=== PATIENT | female | born 1955 | race Caucasian/White ===

== ENCOUNTER → 2016-09-04 | Outpatient (CLI) | payer BC, OTHER ==
[~2016-09-04] MED LIST: AMLO-110 PO; COEN10CA5 PO; LEVO75TA5 PO; MAGN1CAP3 PO; SYN75 PO
[2016-09-04 11:22] LABS: ALT/SGPT 19 U/L (12-78); AST/SGOT 15 U/L (15-37); BLOOD UREA NITROGEN 14 mg/dl (7-18); BUN/CREATININE RATIO 18.6 (10-20); CARBON DIOXIDE 30 mmol/L (21-32); CHLORIDE 103 mmol/L (98-107); CREATININE 0.78 mg/dl (0.60-1.20); GLUCOSE 103 mg/dl (70-99); POTASSIUM 3.9 mmol/L (3.5-5.1); SODIUM 141 mmol/L (136-145)
[2016-09-04 11:33] LABS: ALB/GLOB RATIO 1.1 (0.9-2); ALKALINE PHOSPHATASE 73 U/L (45-117); CHOLESTEROL 315 mg/dl (0-200); CHOLESTEROL/HDL RATIO 4.6; HDL CHOLESTEROL 69 mg/dl; LDL CHOLESTEROL CALCULATED 217 mg/dl; TRIGLYCERIDES 143 mg/dl (0-150); VERY LOW DENSITY LIPOPROT CALC 29 mg/dl
[2016-09-04 11:37] LABS: ESTIMATED AVERAGE GLUCOSE 117 mg/dl; HA1C FLAG Normal (Normal)
== END | disposition home or self-care (01) ==
LOC: C.LABBC 08:37
PROVIDERS: ATTEND Family Medicine
DX: R73.03 Prediabetes (principal); E78.5 Hyperlipidemia, unspecified; I10 Essential (primary) hypertension; E03.9 Hypothyroidism, unspecified

== ENCOUNTER → 2016-09-16 | Outpatient (CLI) | payer BC, OTHER ==
[2016-09-16 11:41] LABS: URINE APPEARANCE CLEAR (CLEAR); URINE BILIRUBIN NEG (NEG); URINE COLOR YELLOW; URINE EPITHELIAL CELL AUTO 0-5 /lpf (0-5); URINE NITRITE NEG (NEG); URINE PH 7.5 (4.5-7.5); UROBILINOGEN NEG (NEG)
[2016-09-16 11:44] LABS: MANUAL MICROSCOPIC REQUIRED? NO; REVIEW REQ? NO
== END | disposition home or self-care (01) ==
LOC: C.LABSPEC 10:29
PROVIDERS: ATTEND Internal Medicine
DX: R30.0 Dysuria (principal)

== ENCOUNTER → 2016-09-27 | Outpatient (CLI) | payer BC ==
[2016-09-27 16:57] LABS: URINE APPEARANCE CLEAR (CLEAR); URINE BILIRUBIN NEG (NEG); URINE COLOR DK YELLOW; URINE EPITHELIAL CELL AUTO 0-5 /lpf (0-5); URINE NITRITE POS (NEG); URINE PH 7.5 (4.5-7.5); URINE SPECIFIC GRAVITY 1.015 (1.000-1.030); UROBILINOGEN NEG (NEG)
[2016-09-27 17:00] LABS: MANUAL MICROSCOPIC REQUIRED? NO; REVIEW REQ? NO
== END | disposition home or self-care (01) ==
LOC: C.LABBC 12:22
PROVIDERS: ATTEND Family Medicine
DX: R30.0 Dysuria (principal)

== ENCOUNTER 2016-11-03 10:57 | Emergency (ER) | payer BC ==
[~2016-11-03] VITALS: Ht 165.1 cm; Wt 67.2 kg
[~2016-11-03 10:57] MED LIST changes: -AMLO-110 PO; -LEVO75TA5 PO
[2016-11-03 11:06] VITALS: TEMP 36.7; Ht 165.1 cm; Wt 67.2 kg
[2016-11-03 11:30] VITALS: O2SAT 98
[2016-11-03 11:51] LABS: HEMATOCRIT 45.1 % (37-47); MEAN CELL VOLUME 91.3 fL (80-100); MEAN CORPUSCULAR HEMOGLOBIN 31.6 pg (25-34); MEAN CORPUSCULAR HGB CONC 34.6 g/dl (32-36); PLATELET COUNT 240 K/uL (130-400); RED BLOOD COUNT 4.94 M/uL (4.2-5.4); WHITE BLOOD COUNT 4.98 K/uL (4.8-10.8)
--- NOTE | 2016-11-03 11:58 | DIAGNOSTIC IMAGING REPORT ---
SINGLE VIEW CHEST CLINICAL HISTORY: Hypertension. FINDINGS: An AP, portable, upright chest radiograph is compared to study dated 11/29/2010. The examination is degraded by portable technique and patient rotation. The cardiomediastinal heart is mildly enlarged. The pulmonary vasculature is noncongested. Chronic interstitial thickening is unchanged. The lungs and pleural spaces are clear. No pneumothorax is seen. The skeletal structures are osteopenic. The bony thorax is grossly intact. IMPRESSION: Mild cardiac enlargement with no active disease in the chest. Electronically signed by: Mejia Stinson M.D. 11/03/2016 11:57 AM Dictated Date/Time: 11/03/2016 11:56 AM
[2016-11-03] MEDS ORDERED: SODIUM CHLORIDE 0.9% 1000ML 1,000 ML IV STA (12:06)
[2016-11-03 12:08] LABS: PROTHROMBIN TIME (PATIENT) 10.2 SECONDS (9.0-12.0)
--- NOTE | 2016-11-03 12:08 | EMERGENCY ROOM VISIT NOTE ---
History Report prepared by Sandra: Dino Finn Under the Supervision of: Rosa ShannonO. First contact with patient: 11:51 Chief Complaint: HYPERTENSION Stated Complaint: HIGH BLOOD PRESSURE MAKING HER ANXIOUS History of Present Illness The patient is a 61 year old female who presents to the Emergency Room with complaints of waxing & waning hypertension this morning. The patient is not treated for hypertension but she is on the borderline so she checks it regularly. The first time she checked her blood pressure this morning it was normal. The following readings showed 165 / 90, 134 / 100, and 184 / 110. She admits to feeling anxious. She experienced generalized body tingling last night. Today she is asymptomatic. She denies fevers, chills, headache, blurry vision, cough or cold symptoms, chest pain, shortness of breath, nausea, vomiting, changes in her bowel or urinary habits, or leg swelling. She has leg shoulder / arm pain chronically secondary to rotator cuff disease. She denies recent changes in her diet. The patient is not sure if she has a family history of hypertension. She does have a strong family history of heart disease at a young age. Source of History: patient Onset: this morning Position: other (cardiovascular) Quality: other (hypertension) Timing: waxes/wanes Associated Symptoms: + numbness (last night), No SOB, No chest pain, No chills, No cough, No diarrhea, No fevers, No headache, No nausea, No urinary symptoms, No vomiting Review of Systems See HPI for pertinent positives & negatives. A total of 10 systems reviewed and were otherwise negative. Past Medical & Surgical Medical Problems: (1) Benign hypertension (2) carcinoma of skin removal (3) Diverticulitis Family History Heart disease Social History Smoking Status: Never Smoker Alcohol Use: occasionally Marital Status: Housing Status: lives with significant other Occupation Status: retired Current/Historical Medications Scheduled Amlodipine (Norvasc), 5 MG PO DAILY Levothyroxine Sodium (Levothyroxine Sodium), 1 TAB PO DAILY Allergies Coded Allergies: Sulfa Drugs (Verified Allergy, Mild, FACIAL REDNESS AND HIVES, 11/03/16) Physical Exam Vital Signs Date Time Temp Pulse Resp B/P Pulse Ox O2 Delivery O2 Flow Rate FiO2 11/03/16 16:53 80 18 180/96 95 11/03/16 15:56 78 11/03/16 15:15 85 18 166/111 95 Room Air 11/03/16 14:19 60 18 173/93 97 Room Air 11/03/16 13:07 76 18 179/88 95 Room Air 11/03/16 13:02 59 18 179/88 96 Room Air 11/03/16 12:03 70 11/03/16 11:32 71 18 210/102 98 Room Air 184/100 11/03/16 11:30 98 Room Air 11/03/16 11:06 36.7 107 18 195/126 96 Room Air Physical Exam GENERAL: alert, well appearing, well nourished, no distress, non-toxic EYE EXAM: normal conjunctiva, PERRL and EOM's grossly intact OROPHARYNX: no exudate, no erythema, lips, buccal mucosa, and tongue normal and mucous membranes are dry NECK: supple, no nuchal rigidity, no adenopathy, non-tender LUNGS: Clear to auscultation. Normal chest wall mechanics HEART: no murmurs, S1 normal and S2 normal ABDOMEN: abdomen soft, non-tender, normo-active bowel sounds, no masses, no rebound or guarding. BACK: Back is symmetrical on inspection and there is no deformity, no midline tenderness, no CVA tenderness. SKIN: no rashes and no bruising UPPER EXTREMITIES: upper extremities are grossly normal. LOWER EXTREMITIES: No pitting edema. NEURO EXAM: Normal sensorium, cranial nerves II-XII grossly intact, normal speech, no gross weakness of arms, no gross weakness of legs. Gross sensation intact. Medical Decision & Procedures ER Provider Diagnostic Interpretation: Xray results per the radiologist and my interpretation. SINGLE VIEW CHEST CLINICAL HISTORY: Hypertension. FINDINGS: An AP, portable, upright chest radiograph is compared to study dated 11/29/2010. The examination is degraded by portable technique and patient rotation. The cardiomediastinal heart is mildly enlarged. The pulmonary vasculature is noncongested. Chronic interstitial thickening is unchanged. The lungs and pleural spaces are clear. No pneumothorax is seen. The skeletal structures are osteopenic. The bony thorax is grossly intact. IMPRESSION: Mild cardiac enlargement with no active disease in the chest. Electronically signed by: Mejia Stinson M.D. 11/03/2016 11:57 AM Dictated Date/Time: 11/03/2016 11:56 AM Laboratory Results 11/03/16 11:40 5/5/17 11:40 Test 11/03/16 11:40 11/03/16 13:09 Red Blood Count 4.94 M/uL (4.2-5.4) Mean Corpuscular Volume 91.3 fL (80-100) Mean Corpuscular Hemoglobin 31.6 pg (25-34) Mean Corpuscular Hemoglobin Concent 34.6 g/dl (32-36) RDW Standard Deviation 40.5 fL (36.4-46.3) RDW Coefficient of Variation 12.1 % (11.5-14.5) Mean Platelet Volume 10.0 fL (7.4-10.4) Prothrombin Time 10.2 SECONDS (9.0-12.0) Prothromb Time International Ratio 1.0 (0.9-1.1) Activated Partial Thromboplast Time 25.3 SECONDS (21.0-31.0) Partial Thromboplastin Ratio 1.0 Anion Gap 8.0 mmol/L (3-11) Est Creatinine Clear Calc Drug Dose 60.2 ml/min Estimated GFR () 83.3 Estimated GFR (Non- 71.9 BUN/Creatinine Ratio 15.3 (10-20) Calcium Level 9.6 mg/dl (8.5-10.1) Total Bilirubin 0.9 mg/dl (0.2-1) Aspartate Amino Transf (AST/SGOT) 19 U/L (15-37) Alanine Aminotransferase (ALT/SGPT) 16 U/L (12-78) Alkaline Phosphatase 75 U/L (45-117) Total Creatine Kinase 41 U/L (26-192) Creatine Kinase MB < 0.5 ng/ml (0.5-3.6) Creatine Kinase MB Ratio (0-3.0) Troponin I < 0.015 ng/ml (0-0.045) Total Protein 8.1 gm/dl (6.4-8.2) Albumin 4.3 gm/dl (3.4-5.0) Globulin 3.8 gm/dl (2.5-4.0) Albumin/Globulin Ratio 1.1 (0.9-2) Urine Color YELLOW Urine Appearance CLEAR (CLEAR) Urine pH 8.0 (4.5-7.5) Urine Specific [place] 1.005 (1.000-1.030) Urine Protein NEG (NEG) Urine Glucose (UA) NEG (NEG) Urine Ketones 1+ (NEG) Urine Occult Blood NEG (NEG) Urine Nitrite NEG (NEG) Urine Bilirubin NEG (NEG) Urine Urobilinogen NEG (NEG) Urine Leukocyte Esterase NEG (NEG) Laboratory results per my review. Medications Administered Medications (Trade) Dose Ordered Sig/Micah Route Start Time Stop Time Status Last Admin Dose Admin Sodium Chloride (Nss 1000ml) 1,000 ml @ 999 mls/hr Q1H1M STAT IV 11/03/16 12:06 11/03/16 13:06 DC 11/03/16 13:02 999 MLS/HR Amlodipine Besylate (Norvasc Tab) 5 mg NOW ONCE PO 11/03/16 14:15 11/03/16 14:16 DC 11/03/16 14:23 5 MG ECG Indication: other (hypertension) Rate (beats per minute): 72 Rhythm: normal sinus Findings: no acute ischemic change, other (normal axis, normal intervals) Comparison ECG Date: no prior available ED Course 1156: The patient was evaluated in room C2B. A complete history and physical exam was performed. 1206 NSS 1000 ml @ 999 mls/hr. 1358: The patient looks fine. Pressure is still elevated. 1415: Norvasc 5 mg PO. 1600: Blood pressure 159/91. She is asymptomatic and feels okay. She would like to go home. Medical Decision Differential diagnosis includes essential hypertension, hypertensive urgency vs emergency, ACS, anxiety, dietary indiscretion. Patient with a symptomatically hypertension. No evidence of end organ damage. Given lack of symptoms and reassuring labs, doubt ACS, dissection, CVA, intracerebral hemorrhage. No evidence of acute infectious process. Patient mildly anxious, and likely this contributed to escalating pressures after she had one mildly elevated reading at home and continue to check her pressure. This patient bedside close follow-up with family doctor in possible cardiology evaluation as an outpatient. Discussed having her blood pressure machine calibrated and appropriate checking of her blood pressure at home. Discussed initiation of medication. Discussed symptoms to watch and return for, she verbalized understanding was agreeable with plan. Patient with a nonfocal and reassuring neuro exam here, did not feel warranted neuro imaging at this time. Patient with a history of chronic left shoulder pain, no change in her baseline level of pain, patient is active and has pain on regular basis. Impression Primary Impression: Essential hypertension Additional Impression: Anxiety Scribe Attestation The scribe's documentation has been prepared under my direction and personally reviewed by me in its entirety. I confirm that the note above accurately reflects all work, treatment, procedures, and medical decision making performed by me. Departure Information Dispostion Home / Self-Care Prescriptions Amlodipine (Norvasc) 5 Mg Tab 5 MG PO DAILY, #30 TAB Prov: Yennifer Velazquez, 11/03/16 Referrals Amador Bro D.O.Int.Med. (PCP) Forms HOME CARE DOCUMENTATION FORM, IMPORTANT VISIT INFORMATION, WORK / SCHOOL INSTRUCTIONS Patient Instructions My [facility] Additional Instructions Please follow-up with your family doctor in the next 2-3 days. Please take the blood pressure medication daily as prescribed. If you develop any symptoms including headaches, vision changes, chest pain or pressure, trouble breathing, nausea, dizziness, numbness or tingling, abdominal pain, back pain, or any other new concerns, please return to the ER immediately. Please discuss with your her family doctor blood pressure medications, as well as possible cardiology evaluation. Problem Qualifiers
[2016-11-03 12:14] LABS: ALT/SGPT 16 U/L (12-78); AST/SGOT 19 U/L (15-37); BLOOD UREA NITROGEN 13 mg/dl (7-18); BUN/CREATININE RATIO 15.3 (10-20); CALCIUM 9.6 mg/dl (8.5-10.1); CARBON DIOXIDE 29 mmol/L (21-32); CHLORIDE 104 mmol/L (98-107); CREATININE 0.86 mg/dl (0.60-1.20); GLUCOSE 102 mg/dl (70-99); POTASSIUM 3.9 mmol/L (3.5-5.1); SODIUM 141 mmol/L (136-145)
[2016-11-03] MEDS ORDERED: LEVO75TA5 PO (12:18)
[2016-11-03 12:19] LABS: ALB/GLOB RATIO 1.1 (0.9-2); ALKALINE PHOSPHATASE 75 U/L (45-117)
[2016-11-03 13:40] LABS: URINE APPEARANCE CLEAR (CLEAR); URINE BILIRUBIN NEG (NEG); URINE COLOR YELLOW; URINE NITRITE NEG (NEG); URINE SPECIFIC GRAVITY 1.005 (1.000-1.030); UROBILINOGEN NEG (NEG); ZZUR CULT IF INDIC CLEAN CATCH NO
[2016-11-03 13:48] LABS: MANUAL MICROSCOPIC REQUIRED? NO; REVIEW REQ? NO
[2016-11-03] MEDS ORDERED: AMLODIPINE BESYLATE 5 MG TAB PO ONE (14:15)
[2016-11-03] MEDS ORDERED: AMLO-110 PO (16:11)
[2016-11-03 16:53] VITALS: BP 180/96; PULSE 80; O2SAT 95
== END 2016-11-03 16:54 | disposition home or self-care (01) ==
LOC: C.EDB 10:58 → C.EDC 16:54
DX: I10 Essential (primary) hypertension (principal); F41.9 Anxiety disorder, unspecified; K57.92 Diverticulitis of intestine, part unspecified, without perforation or abscess without bleeding; Z82.49 Family history of ischemic heart disease and other diseases of the circulatory system; Z79.899 Other long term (current) drug therapy

== ENCOUNTER → 2016-11-06 | Outpatient (CLI) | payer BC ==
[~2016-11-06] MED LIST changes: +AMLO-110 PO; -COEN10CA5 PO; +LEVO75TA5 PO; -MAGN1CAP3 PO; -SYN75 PO
== END | disposition home or self-care (01) ==
LOC: C.LABBC 11:18
PROVIDERS: ATTEND Family Medicine
DX: M25.512 Pain in left shoulder (principal); R00.0 Tachycardia, unspecified

== ENCOUNTER 2019-11-08 18:19 | Inpatient (IN) ==
--- NOTE | 2019-11-08 18:53 | Emergency Department Note ---
History of Present Illness General Chief complaint: Tachycardia Stated complaint: HIGH HEART RATE, HIGH BLOOD PRESSURE Time Seen by Provider: 11/08/19 18:30 Source: patient Mode of arrival: ambulatory Limitations: no limitations History of Present Illness Maximum Pain Intensity: 0 This patient comes in with a concern for elevated blood pressure and heart rate. She said her blood pressure was up for her yesterday at 161 systolic and then it was fine she felt well. Today she noticed on her smart watch that her heart rate was 178 and had high blood pressure. Heart rate has since come down. She is been asymptomatic with this however. She is had no chest pain lightheadedness or dizziness or syncope. No shortness of breath or pleurisy. No nausea or vomiting or numbness or weakness. She feels that she been keeping up with her fluid and has not been dehydrated. No leg pain or swelling. No recent travel. No exposure to COVID that she knows of or COVID-like symptoms. No dysuria. No blood or melena in the stool. No new medications. She had her thyroid checked recently and was and it looks good. She has been compliant with her medications. She states she had a history of a similar episode about 4 years ago and they increased her blood pressure medications and her blood pressure went too low and they took her back off. She does have a history of breast cancer but is not on any treatment at present and is not on tamoxifen or hormones. Home Medications Home Medications Medication Instructions Recorded Confirmed Type calcium carb-vit D3-minerals 600 1 tab PO DAILY tab 09/25/18 11/08/19 History mg calcium-400 unit tablet omega-3 360 mm-[id number]-fish oil 1 cap PO DAILY 09/25/18 11/08/19 History 1,200 mg capsule,delayed release levothyroxine [Synthroid] 75 mcg PO DAILY 11/08/19 11/08/19 History Allergies Allergy/AdvReac Type Severity Reaction Status Date / Time Sulfa (Sulfonamide Allergy Mild FACIAL Verified 11/08/19 19:35 Antibiotics) REDNESS AND HIVES gluten AdvReac Intermediate joint pain Verified 11/08/19 19:35 Past Med/Surg History Medical History Hypothyroid (Acute) Skin cancer (Acute) Surgical History S/P dilatation and curettage (Acute) Status post Mohs surgery (Acute) surgery 2009 / nose Status post right breast lumpectomy (Acute) surgery 08-21-2018 Family History Mother , age 74 Leukemia, acute Father , age 60 Coronary heart disease Sister No problems noted. Sister No problems noted. Sister No problems noted. Sister No problems noted. Sister No problems noted. Sister No problems noted. Brother Testicular cancer Brother Leukemia Brother No problems noted. Brother No problems noted. 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 Other Information That Helps Us Care for You: No Feels Safe at Home: Yes Safety Concerns: Feels Safe At This Time Smoking Status: Never smoker Hx Alcohol Use: Yes Alcohol type: wine Hx Substance Use: No Review of Systems A total of 10 systems reviewed and were otherwise negative Physical Exam Vital Signs Vital Signs - 24 hr 11/08/19 18:20 11/08/19 18:45 11/08/19 19:57 Temperature 36.5 C Temperature Source Oral Pulse Rate 128 H Pulse Rate [Right] 76 Pulse Rhythm [Right] Regular Pulse Strength [Right] Normal Respiratory Rate 20 16 Respiratory Effort / Characteristics Non-Labored Non-Labored Spontaneous Respiratory Depth Normal Normal Respiratory Pattern Regular Blood Pressure 198/124 H Blood Pressure [Left Arm] Blood Pressure [Right Arm] 198/108 H Blood Pressure Mean 148 Blood Pressure Mean [Left Arm] Blood Pressure Mean [Right Arm] 138 Blood Pressure Position [Left Arm] Blood Pressure Position [Right Arm] Sitting Pulse Oximetry 96 96 96 Oxygen Delivery Method Room Air Room Air Room Air Sepsis Recent Fever Within 48 Hours No Sepsis Action Taken by Nursing No Action Required 11/08/19 20:00 11/08/19 22:00 11/08/19 22:27 Temperature Temperature Source Pulse Rate Pulse Rate [Right] 87 78 Pulse Rhythm [Right] Regular Regular Pulse Strength [Right] Normal Normal Respiratory Rate 16 18 Respiratory Effort / Characteristics Non-Labored Spontaneous Non-Labored Spontaneous Respiratory Depth Normal Normal Respiratory Pattern Regular Regular Blood Pressure Blood Pressure [Left Arm] 193/105 H 228/120 H Blood Pressure [Right Arm] 203/114 H Blood Pressure Mean Blood Pressure Mean [Left Arm] 134 156 Blood Pressure Mean [Right Arm] 143 Blood Pressure Position [Left Arm] Sitting Lying Blood Pressure Position [Right Arm] Lying Pulse Oximetry 99 98 Oxygen Delivery Method Room Air Room Air Sepsis Recent Fever Within 48 Hours Sepsis Action Taken by Nursing 11/08/19 22:30 11/08/19 22:31 Temperature Temperature Source Pulse Rate 77 73 Pulse Rate [Right] 74 Pulse Rhythm [Right] Regular Pulse Strength [Right] Normal Respiratory Rate 17 19 Respiratory Effort / Characteristics Non-Labored Spontaneous Respiratory Depth Normal Respiratory Pattern Blood Pressure 220/96 H Blood Pressure [Left Arm] Blood Pressure [Right Arm] 220/96 H Blood Pressure Mean 142 Blood Pressure Mean [Left Arm] Blood Pressure Mean [Right Arm] 137 Blood Pressure Position [Left Arm] Blood Pressure Position [Right Arm] Lying Pulse Oximetry 96 98 Oxygen Delivery Method Room Air Room Air Sepsis Recent Fever Within 48 Hours Sepsis Action Taken by Nursing General: Well developed well nourished older female who appears in no acute distress, breathing comfortably on room air. Normal speech HEENT: Normal cephalic atraumatic. Pupils are equal round and reactive to light. Extraocular movements are intact. Oropharynx is pink with moist mucous membranes. No swelling of the mouth lips or tongue. Neck: Supple with a midline trachea. No meningeal signs or stiffness, no JVD or bruits. No Stridor. Chest: Clear to auscultation bilaterally. No wheezes or rhonchi. No increased work of breathing. Heart: Regular rate and rhythm without murmurs or gallops. Abdomen: Soft nontender, nondistended without rebound guarding or rigidity. Extremities: No cyanosis clubbing or edema. No calf tenderness or assymetry Spine/Back. Non tender to palpation. No CVA tenderness Skin: Good turgor without rashes. Neurologic exam: Cranial nerves two through 12 are intact. Motor and sensation are intact and symmetrical throughout. Procedures Free Text Procedures ED observation note-the patient was observed in the ED for chest pain The patient had does have a family history of cardiac disease and leukemia Because the patient was tachycardic and hypertensive she was placed on a registered nurse cardiac telemetry and had an EKG and troponin. She was placed in ED observation on 1848 and observed on a registered nurse cardiac telemetry while she was in the ED and had a second EKG and troponin. She remained in observation over 3 hours after her second troponin at 2200 because she remained tachycardic, she did warrant further evaluation in the hospital. Course Administered Medications Discontinued Medications Labetalol HCl (Normodyne) 10 mg IV NOW STA Stop: 11/08/19 22:10 Last Admin: 11/08/19 22:28 Dose: 10 mg Documented by: [id number] Cosigned by: [id number] Lisinopril (Zestril) 2.5 mg PO ONE ONE Stop: 11/08/19 22:44 Last Admin: 11/08/19 23:08 Dose: 2.5 mg Documented by: [id number] Tramadol HCl (Ultram) 25 mg PO NOW STA Stop: 11/08/19 22:12 Last Admin: 11/08/19 22:27 Dose: 25 mg Documented by: [id number] Medical Decision Making Differential Diagnosis Includes but is not limited to: Arrhythmia, hypertension, PE, electrolyte or metabolic abnormality, acute coronary syndrome, anemia, infection Medical Records Attestation: I reviewed the patient's medical records. Home Medications Current Medication List: was personally reviewed by me Laboratory Data Result diagrams: 11/08/19 19:02 11/08/19 19:02 Lab Results 11/08/19 11/08/19 11/08/19 Range/Units 19:02 19:02 19:02 WBC 6.41 (4.8-10.8) K/uL RBC 4.86 (4.2-5.4) M/uL Hgb 15.8 (12.0-16.0) g/dL Hct 44.3 (37-47) % MCV 91.2 (80-100) fL MCH 32.5 (25-34) pg MCHC 35.7 (32-36) g/dL RDW Std Deviation 41.7 (36.4-46.3) fL RDW Coeff of Jimi 12.5 (11.5-14.5) % Plt Count 259 (130-400) K/uL MPV 9.9 (7.4-10.4) fL Immature Gran % (Auto) 0.2 % Neut % (Auto) 62.7 % Lymph % (Auto) 28.5 % [place] % (Auto) 6.2 % Eos % (Auto) 1.6 % Baso % (Auto) 0.8 % Immature Gran # (Auto) 0.01 (0.00-0.02) K/uL Neut # (Auto) 4.02 (1.4-6.5) K/uL Lymph # (Auto) 1.83 (1.2-3.4) K/uL [place] # (Auto) 0.40 (0.11-0.59) K/uL Eos # (Auto) 0.10 (0-0.5) K/uL Baso # (Auto) 0.05 (0-0.2) K/uL PT 10.7 (9.0-12.0) Seconds INR 1.0 (0.9-1.1) APTT 24.8 (21.0-31.0) Seconds PTT Ratio 0.9 D-Dimer 290 (0-500) ug/L FEU Sodium 137 (136-145) mmol/L Potassium 4.0 (3.5-5.1) mmol/L Chloride 105 (98-107) mmol/L Carbon Dioxide 26 (21-32) mmol/L Anion Gap 7.0 (3-11) BUN 14 (7-18) mg/dl Creatinine 0.77 (0.6-1.2) mg/dl Est Cr Clr Drug Dosing 67.3 ml/min Est GFR ( Amer) 93.3 Est GFR (Non-Af Amer) 80.5 BUN/Creatinine Ratio 17.6 (10-20) Glucose 104 H (70-99) mg/dl Calcium 9.2 (8.5-10.1) mg/dl Magnesium 2.2 (1.8-2.4) mg/dl Total Bilirubin 0.7 (0.2-1) mg/dl AST 14 L (15-37) U/L ALT 23 (12-78) U/L Alkaline Phosphatase 82 (45-117) U/L Troponin I < 0.015 (0-0.045) ng/ml Total Protein 8.0 (6.4-8.2) gm/dl Albumin 4.3 (3.4-5.0) gm/dl Globulin 3.7 (2.5-4.0) gm/dl Albumin/Globulin Ratio 1.2 (0.9-2) Lipase 115 (73-393) U/L TSH 3.760 (0.300-4.500) uIu/ml 11/08/19 Range/Units 21:48 WBC (4.8-10.8) K/uL RBC (4.2-5.4) M/uL Hgb (12.0-16.0) g/dL Hct (37-47) % MCV (80-100) fL MCH (25-34) pg MCHC (32-36) g/dL RDW Std Deviation (36.4-46.3) fL RDW Coeff of Jimi (11.5-14.5) % Plt Count (130-400) K/uL MPV (7.4-10.4) fL Immature Gran % (Auto) % Neut % (Auto) % Lymph % (Auto) % [place] % (Auto) % Eos % (Auto) % Baso % (Auto) % Immature Gran # (Auto) (0.00-0.02) K/uL Neut # (Auto) (1.4-6.5) K/uL Lymph # (Auto) (1.2-3.4) K/uL [place] # (Auto) (0.11-0.59) K/uL Eos # (Auto) (0-0.5) K/uL Baso # (Auto) (0-0.2) K/uL PT (9.0-12.0) Seconds INR (0.9-1.1) APTT (21.0-31.0) Seconds PTT Ratio D-Dimer (0-500) ug/L FEU Sodium (136-145) mmol/L Potassium (3.5-5.1) mmol/L Chloride (98-107) mmol/L Carbon Dioxide (21-32) mmol/L Anion Gap (3-11) BUN (7-18) mg/dl Creatinine (0.6-1.2) mg/dl Est Cr Clr Drug Dosing ml/min Est GFR ( Amer) Est GFR (Non-Af Amer) BUN/Creatinine Ratio (10-20) Glucose (70-99) mg/dl Calcium (8.5-10.1) mg/dl Magnesium (1.8-2.4) mg/dl Total Bilirubin (0.2-1) mg/dl AST (15-37) U/L ALT (12-78) U/L Alkaline Phosphatase (45-117) U/L Troponin I < 0.015 (0-0.045) ng/ml Total Protein (6.4-8.2) gm/dl Albumin (3.4-5.0) gm/dl Globulin (2.5-4.0) gm/dl Albumin/Globulin Ratio (0.9-2) Lipase (73-393) U/L TSH (0.300-4.500) uIu/ml Imaging Data Radiologist's Impression: Chest x-ray: No acute infiltrate failure or pneumothorax seen. Please refer to radiology note ECG Data Attestation: I personally reviewed and interpreted this ECG as follows: Indication: + tachycardia Rate (beats per minute): 105 Rhythm: + sinus tachycardia ECG Intervals/blocks: + Normal QRS and + Normal QT ECG [place]: + Normal ECG ST segments: + Nonspecific ST abnormalities ECG Findings: no PACs and no PVCs Comparison ECG Date: from (11/08/2019) Change: no significant change Additional Comments: #2- NSR at 75, Non-specific ST/T wave abnl without changes compared to EKG #1. Blood Pressure Blood Pressure Findings: Elevated blood pressure Blood Pressure Disposition: Referred to patients primary care provider MDM Narrative This patient comes in as described above. Blood pressures been up and down she also had a rapid heart rate. Heart rate is now normal. She has had no chest pain shortness of breath or syncope or any other symptoms. IV access was established, EKG chest x-ray multiple blood testing was obtained. She was reassessed frequently. She has remained stable. Her blood pressure does remain high however but she is otherwise asymptomatic with exception of her pulse goes up if she gets up she said this is new for her. Her EKG shows some nonspecific ST abnormalities but no definite ischemic change when compared to old. I did a second EKG there is no change compared to EKG #1. She was observed in the ED using her cardiac heart protocol and she had to negative troponins done 3 hours apart. She has no acute electrolyte or metabolic abnormalities. Chest x-ray does not show congestive heart failure, pneumonia, or pneumothorax. She is not on anything for her blood pressure and her blood pressure and she may need to be started on blood pressure medications however last time she had this she said her pressure bottomed out at home and she had to stop it. I did have her walk around the ED and her heart rate went to the 110s which she says is abnormal for her she had no syncope or palpitations. I do think she needs to be observed for further cardiac work-up in the hospital given her ongoing symptoms and tachycardia and she may need medications for her blood pressure as well. Continuous cardiac monitoring: An order was placed for continuous cardiac monitoring. This was done due to her tachycardia. Her initial heart rate was sinus rhythm at 76. This was observed by myself. She was kept on the monitor while she was in the ED. Impression & Plan Palpitation, Sinus tachycardia, HTN (hypertension), History of breast cancer Discharge Plan Visit Data Chief Complaint: Tachycardia Stated Complaint: HIGH HEART RATE, HIGH BLOOD PRESSURE ED Provider: Yamil Linares Discharge Problem: Palpitation, Sinus tachycardia, HTN (hypertension), History of breast cancer Discharge Instructions Interventions: ED Discharge Assessment Last Done: 11/08/19 23:58 Discharge Problem: HTN (hypertension) Qualifiers: Hypertension type: unspecified Qualified Code(s): I10 - Essential (primary) hypertension
--- NOTE | 2019-11-08 19:01 | XRay Report ---
XR chest 1V portable CLINICAL HISTORY: 64 years-old Female presenting with Chest Pain. TECHNIQUE: Portable upright AP view of the chest was obtained. COMPARISON: . FINDINGS: Atherosclerosis of the aortic arch. Cardiac silhouette borderline enlarged. No focal opacity. No larg e effusion or pneumothorax. Osseous structures normal. Upper abdomen normal. IMPRESSION: 1. Borderline cardiomegaly. No other convincing evidence of acute cardiopulmonary disease. ACT 112: Negative or not required by law. Electronically signed by: Toy Mina M.D. 11/08/2019 7:00 PM
[2019-11-08 19:19] LABS: Basophils # (auto) 0.05 K/uL (0-0.2); Basophils % (auto) 0.8 %; Eosinophils % (auto) 1.6 %; Hematocrit (blood only) 44.3 % (37-47); Hemoglobin 15.8 g/dL (12.0-16.0); Immature Granulocytes # (auto) 0.01 K/uL (0.00-0.02); Immature Granulocytes % (auto) 0.2 %; Lymphocytes # (auto) 1.83 K/uL (1.2-3.4); Lymphocytes % (auto) 28.5 %; Mean Corpuscular Hemoglobin 32.5 pg (25-34); Mean Corpuscular Hgb Conc 35.7 g/dL (32-36); Mean Corpuscular Volume 91.2 fL (80-100); Mean Platelet Volume 9.9 fL (7.4-10.4); Monocytes % (auto) 6.2 %; Neutrophils # (auto) 4.02 K/uL (1.4-6.5); Neutrophils % (auto) 62.7 %; Platelet Count 259 K/uL (130-400); RDW Coefficient of Variation 12.5 % (11.5-14.5); RDW Standard Deviation 41.7 fL (36.4-46.3); Red Blood Count 4.86 M/uL (4.2-5.4); White Blood Count 6.41 K/uL (4.8-10.8)
[2019-11-08 19:35] LABS: Alanine Aminotransferase 23 U/L (12-78); Albumin Level 4.3 gm/dl (3.4-5.0); Aspartate Aminotransferase 14 U/L (15-37); BUN Creatinine Ratio 17.6 (10-20); Blood Urea Nitrogen 14 mg/dl (7-18); Calcium 9.2 mg/dl (8.5-10.1); Carbon Dioxide 26 mmol/L (21-32); Chloride 105 mmol/L (98-107); Creatinine Clr Calc Pharmacy 67.3 ml/min; D Dimer 290 ug/L FEU (0-500); Est GFR (African American) 93.3; Est GFR (Non-African American) 80.5; Glucose 104 mg/dl (70-99); Lipase 115 U/L (73-393); Partial Thromboplastin Ratio 0.9; Partial Thromboplastin Time 24.8 Seconds (21.0-31.0); Prothrombin Time 10.7 Seconds (9.0-12.0); Sodium 137 mmol/L (136-145)
[2019-11-08 19:45] LABS: Albumin Globulin Ratio 1.2 (0.9-2); Alkaline Phosphatase 82 U/L (45-117); Bilirubin,Total 0.7 mg/dl (0.2-1); Globulin 3.7 gm/dl (2.5-4.0); Troponin I < 0.015 ng/ml (0-0.045)
[2019-11-08 21:47] LABS: Magnesium 2.2 mg/dl (1.8-2.4)
[2019-11-08] MEDS ORDERED: LABETALOL HCL IV 5 MG/ML 20ML IV STA (22:09)
[2019-11-08] MEDS ORDERED: TRAMADOL HCL 50 MG TABLET PO STA (22:11)
[2019-11-08] MEDS ORDERED: PROMETHAZINE HCL 12.5 MG in SODIUM CHLORIDE 0.9% 50 ML IV PRN (22:11)
[2019-11-08] MEDS ORDERED: LORazepam 0.25 MG/0.5 ML VIAL IV PRN (22:13)
--- NOTE | 2019-11-08 22:30 | CT Scan Report ---
CT head/brain wo con CLINICAL HISTORY: 64 years-old Female presenting with fernandez, tachycardia, hypertension. TECHNIQUE: Multidetector CT imaging of the head was performed without the use of intravenous contrast . IV contrast: None. One or more dose lowering techniques were used consistent with the principles of ALARA (as low as reasonably achievable), including automatic exposure control, mA or kV adjustment t o individual patient size, and/or use of iterative reconstruction. COMPARISON: None. CT DOSE (mGy.cm): The estimated cumulative dose is 729.78 mGycm. FINDINGS: Sample Examiner topogram: Unremarkable. Ventricles and sulci normal in size. No hemorrhage. Periventricular and subcortical white matter hypo attenuation, most focally in the left parietal lobe, nonspecific but possibly indicative of chronic s mall vessel ischemic change. No acute territorial infarct. No mass effect or midline shift. No extra- axial fluid collection. Paranasal sinuses and mastoid air cells clear. Calvarium intact. IMPRESSION: 1. Suspected chronic small vessel ischemic change, most focally in the left parietal lobe. Posterior reversible encephalopathy syndrome is considered less likely. 2. No hemorrhage or other evidence of acute intracranial pathology. ACT 112: Negative or not required by law. Electronically signed by: Toy Mina M.D. 11/08/2019 10:29 PM
--- NOTE | 2019-11-08 22:45 | History & Physical Report ---
Date of Service November 08, 2019 Assessment & Plan (1) Hypertensive crisis: Unclear precipitant Tachy-bradycardia episodes on smart watch monitor as per patient account breast cancer right status post surgery, radiation Hypothyroidism, euthyroid as of today's TSH PCU Labetalol 1 dose now Initiate lisinopril May benefit from Cardiology consultation for hypertensive crisis. DVT prophylaxis per Lovenox subcu Full code Text document was generated using [employer] voice recognition software. It may contain grammatical or spelling errors. Kindly contact undersigned for clarification of any documentation item in question. History of Present Illness Primary Care Provider: Toy Dove MD History obtained from patient and records. Medical history significant for hypertension, breast cancer right status post surgery, radiation, hypothyroidism, skin cancer as per records. Patient seen at the ER last October 2016 for high blood pressure and anxiety. SBP 1 60-1 80s. Patient discharged on amlodipine prescription which should help for a short time. Medication eventually discontinued due to dizziness from low blood pressure. Yesterday while exercising patient noted elevated blood pressure SBP 160s. No chest pain, no S OB. No unusual stress or change in exercise regimen. Denies inordinate caffeine intake. Denies NSAID intake. No family concerns about sleep apnea as per patient. Mild achy headache symptoms. She was working in the kitchen today when she noticed the heart rate monitor on her smart watch to be 170s. SBP again noted to be 160s. Cardiac rate sometimes 40s during sleep upon review of her smart watch heart rate monitor. No chest pain, no S OB. Persistent headache symptoms. Patient consulted ER for evaluation. At the ER, SBP noted to be 190-220s. 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 Allergies Allergy/AdvReac Type Severity Reaction Status Date / Time Sulfa (Sulfonamide Allergy Mild FACIAL Verified 11/08/19 19:35 Antibiotics) REDNESS AND HIVES gluten AdvReac Intermediate joint pain Verified 11/08/19 19:35 Home Medications Home Medications Medication Instructions Recorded Confirmed Type calcium carb-vit D3-minerals 600 1 tab PO DAILY tab 09/25/18 11/08/19 History mg calcium-400 unit tablet omega-3 360 kk-kye-bhj-fish oil 1 cap PO DAILY 09/25/18 11/08/19 History 1,200 mg capsule,delayed release levothyroxine [Synthroid] 75 mcg PO DAILY 11/08/19 11/08/19 History Past Med/Surg History Medical History Hypothyroid (Acute) Skin cancer (Acute) Surgical History S/P dilatation and curettage (Acute) Status post Mohs surgery (Acute) surgery 2009 / nose Status post right breast lumpectomy (Acute) surgery 08-21-2018 Family History Mother , age 74 Leukemia, acute Father , age 60 Coronary heart disease Sister No problems noted. Sister No problems noted. Sister No problems noted. Sister No problems noted. Sister No problems noted. Sister No problems noted. Brother Testicular cancer Brother Leukemia Brother No problems noted. Brother No problems noted. 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 Other Information That Helps Us Care for You: No Feels Safe at Home: Yes Safety Concerns: Feels Safe At This Time Smoking Status: Never smoker Hx Alcohol Use: Yes Alcohol type: wine Hx Substance Use: No Review of Systems Review of Systems: As per HPI, all 10 systems reviewed, all other ROS negative Physical Exam Physical Exam: GENERAL: Comfortable, slightly anxious, pleasant, no respiratory distress SKIN: Normal color, warm HEENT: Bespectacled, pink palpebral conjunctivae, no ptosis, dry buccal mucosa NECK : Supple, no tenderness CHEST : CTA, no tenderness HEART : RRR, systolic murmur ABDOMEN: Some distention, nontender EXTREMITIES : No LE swelling/tenderness, no other conspicuous deformities noted NEUROLOGIC : Coherent, no facial asymmetry, no other gross focality Results & Data Results & Data ([facility]) Vital Signs (Past 12 Hours) Vital Signs Temp Pulse Pulse Resp BP BP BP 11/08/19 22:30 74 16 220/96 H 11/08/19 22:27 78 18 203/114 H 11/08/19 22:00 87 16 228/120 H 11/08/19 20:00 193/105 H 11/08/19 19:57 76 16 198/108 H 11/08/19 18:45 11/08/19 18:20 36.5 C 128 H 20 198/124 H Pulse Ox 11/08/19 22:30 99 11/08/19 22:27 98 11/08/19 22:00 99 11/08/19 20:00 11/08/19 19:57 96 11/08/19 18:45 96 11/08/19 18:20 96 Laboratory Results Laboratory Results WBC 6.41 K/uL (4.8-10.8) 11/08/19 19:02 RBC 4.86 M/uL (4.2-5.4) 11/08/19 19:02 Hgb 15.8 g/dL (12.0-16.0) 11/08/19 19:02 Hct 44.3 % (37-47) 11/08/19 19:02 MCV 91.2 fL (80-100) 11/08/19 19:02 MCH 32.5 pg (25-34) 11/08/19 19:02 MCHC 35.7 g/dL (32-36) 11/08/19 19:02 RDW Std Deviation 41.7 fL (36.4-46.3) 11/08/19 19:02 RDW Coeff of Jimi 12.5 % (11.5-14.5) 11/08/19 19:02 Plt Count 259 K/uL (130-400) 11/08/19 19:02 MPV 9.9 fL (7.4-10.4) 11/08/19 19:02 Immature Gran % (Auto) 0.2 % 11/08/19 19:02 Neut % (Auto) 62.7 % 11/08/19 19:02 Lymph % (Auto) 28.5 % 11/08/19 19:02 [place] % (Auto) 6.2 % 11/08/19 19:02 Eos % (Auto) 1.6 % 11/08/19 19:02 Baso % (Auto) 0.8 % 11/08/19 19:02 Immature Gran # (Auto) 0.01 K/uL (0.00-0.02) 11/08/19 19:02 Neut # (Auto) 4.02 K/uL (1.4-6.5) 11/08/19 19:02 Lymph # (Auto) 1.83 K/uL (1.2-3.4) 11/08/19 19:02 [place] # (Auto) 0.40 K/uL (0.11-0.59) 11/08/19 19:02 Eos # (Auto) 0.10 K/uL (0-0.5) 11/08/19 19:02 Baso # (Auto) 0.05 K/uL (0-0.2) 11/08/19 19:02 PT 10.7 Seconds (9.0-12.0) 11/08/19 19: INR 1.0 (0.9-1.1) 11/08/19 19: APTT 24.8 Seconds (21.0-31.0) 11/08/19 19:02 PTT Ratio 0.9 11/08/19 19:02 D-Dimer 290 ug/L FEU (0-500) 11/08/19 19:02 Sodium 137 mmol/L (136-145) 11/08/19 19:02 Potassium 4.0 mmol/L (3.5-5.1) 11/08/19 19: Chloride 105 mmol/L (98-107) 11/08/19 19:02 Carbon Dioxide 26 mmol/L (21-32) 11/08/19 19:02 Anion Gap 7.0 (3-11) 11/08/19 19:02 BUN 14 mg/dl (7-18) 11/08/19 19:02 Creatinine 0.77 mg/dl (0.6-1.2) 11/08/19 19: Est Cr Clr Drug Dosing 67.3 ml/min 11/08/19 19:02 Est GFR ( Amer) 93.3 11/08/19 19: Est GFR (Non-Af Amer) 80.5 11/08/19 19:02 BUN/Creatinine Ratio 17.6 (10-20) 11/08/19 19:02 Glucose 104 mg/dl (70-99) H 11/08/19 19:02 Calcium 9.2 mg/dl (8.5-10.1) 11/08/19 19:02 Magnesium 2.2 mg/dl (1.8-2.4) 11/08/19 19:02 Total Bilirubin 0.7 mg/dl (0.2-1) 11/08/19 19:02 AST 14 U/L (15-37) L 11/08/19 19:02 ALT 23 U/L (12-78) 11/08/19 19:02 Alkaline Phosphatase 82 U/L (45-117) 11/08/19 19:02 Troponin I < 0.015 ng/ml (0-0.045) 11/08/19 21:48 Total Protein 8.0 gm/dl (6.4-8.2) 11/08/19 19:02 Albumin 4.3 gm/dl (3.4-5.0) 11/08/19 19:02 Globulin 3.7 gm/dl (2.5-4.0) 11/08/19 19:02 Albumin/Globulin Ratio 1.2 (0.9-2) 11/08/19 19:02 Lipase 115 U/L (73-393) 11/08/19 19:02 TSH 3.760 uIu/ml (0.300-4.500) 11/08/19 19:[address] head 1. Suspected chronic small vessel ischemic change, most focally in the left parietal lobe. Posterior reversible encephalopathy syndrome is considered less likely. 2. No hemorrhage or other evidence of acute intracranial pathology. Chest x-ray : Borderline cardiomegaly. No other convincing evidence of acute cardiopulmonary disease. EKG as per my interpretation : Rate 105, sinus tachycardia, normal axis, no ischemia
[2019-11-09] MEDS ORDERED: TRAMADOL HCL 50 MG TABLET PO PRN (00:16)
[2019-11-09] MEDS ORDERED: MoRPHine SULFATE 4 MG/ML 1 ML CARP\\VIAL IV PRN (00:16)
[2019-11-09] MEDS ORDERED: ACETAMINOPHEN 325 MG TAB PO PRN ×2 (00:16→01:36)
[2019-11-09] MEDS ORDERED: NITROGLYCERIN SL 0.4 MG/TAB TAB SL PRN (01:36)
[2019-11-09] MEDS ORDERED: SODIUM CHLORIDE 0.9% 1000ML 1,000 ML IV ONE (01:45)
[2019-11-09] MEDS ORDERED: LEVOTHYROXINE SODIUM 75 MCG TABLET PO SCH (06:30)
[2019-11-09 06:46] LABS: Basophils # (auto) 0.06 K/uL (0-0.2); Basophils % (auto) 1.1 %; Eosinophils # (auto) 0.12 K/uL (0-0.5); Eosinophils % (auto) 2.2 %; Hematocrit (blood only) 42.5 % (37-47); Hemoglobin 14.8 g/dL (12.0-16.0); Lymphocytes # (auto) 1.56 K/uL (1.2-3.4); Lymphocytes % (auto) 28.2 %; Mean Corpuscular Hgb Conc 34.8 g/dL (32-36); Mean Corpuscular Volume 91.8 fL (80-100); Mean Platelet Volume 10.7 fL (7.4-10.4); Monocytes # (auto) 0.54 K/uL (0.11-0.59); Monocytes % (auto) 9.8 %; Neutrophils # (auto) 3.25 K/uL (1.4-6.5); Neutrophils % (auto) 58.7 %; Platelet Count 229 K/uL (130-400); RDW Coefficient of Variation 12.7 % (11.5-14.5); RDW Standard Deviation 42.7 fL (36.4-46.3); Red Blood Count 4.63 M/uL (4.2-5.4); White Blood Count 5.53 K/uL (4.8-10.8)
[2019-11-09 07:25] LABS: Creatinine Clr Calc Pharmacy 54.5 ml/min; Est GFR (African American) 72.3; Est GFR (Non-African American) 62.4; Potassium 3.8 mmol/L (3.5-5.1)
[2019-11-09] MEDS ORDERED: ENOXAPARIN INJ 30 MG/0.3 ML SYR SQ SCH (09:00)
[2019-11-09 11:10] VITALS: BP 145/79; PULSE 64; TEMP 97.9; O2SAT 96
--- NOTE | 2019-11-09 12:02 | Hospitalist Progress Note ---
Date of Service November 09, 2019 Assessment & Plan (1) Asymptomatic hypertensive urgency: Possible related to anxiety during the hospital admission BP on admission increased to 228/120 Received labetalol 10mg IV in the ER In the past was taking Norvac, that was discontinued due to low BP Received Lisinopril 2.5 mg this morning (Very small dose ) BP 145/79 currently We discussed with cardiology and recommended not to discharge on any meds Clinically stable Sinus tachycardia HR on admission 128 Possible related to anxiety Received Labetalol 10mg IV in the ER Tele monitor showed HR btw 40 to 120's Asymptomatic Will consult cardiology to eval for Tachy-era syndrome ECHO showed no LV wall motion abnormalities. EF 60-65% Case discussed with cardiology Will hold on any medication for now She will follow up with cardiology outpatient in 2 weeks and will arrange for ZIO patch Ok from cardiology standpoint to discharge home Hypothyroidism TSH WNL Continue Levothyroxine DVT px on Lovenox CODE STATUS FULL CODE Disposition Will discharge home today Admission and Anticipated Discharge Date Admission Date: November 08, 2019 Subjective Pt was seen and examined Lying in bed with no distress Pt said that she feels fine She said that she does not have any symptoms Denies any chest pain, palpitation, dizziness and SOB Physical Exam Physical Exam: General- No acute distress Head- atraumatic Eyes- PERRL, EOMI, ENT- oropharynx clear Neck- supple, no JVD Lungs- clear to auscultation Heart- regular rhythm; no murmur Abdomen- normal bowel sounds, soft, nontender Extremities- no calf tenderness Neuro- alert, oriented x 3; PERRL, EOMI; no facial palsy; no dysarthria Skin- warm & dry Results & Data Results & Data ([facility]) Vital Signs (Past 12 Hours) Vital Signs Temp Pulse Pulse Resp BP BP Pulse Ox 11/09/19 11:00 36.6 C 64 16 145/79 H 96 11/09/19 07:15 60 11/09/19 07:00 36.4 C L 57 L 16 143/74 H 97 11/09/19 04:20 36.4 C L 61 20 105/59 L 96 11/09/19 00:58 62 11/09/19 00:30 63 11/09/19 00:24 36.4 C L 62 18 173/89 H 95 11/09/19 00:01 61 20 95
--- NOTE | 2019-11-09 14:23 | Cardiology Consultation ---
Date of Consultation November 09, 2019 Assessment & Plan (1) PSVT (paroxysmal supraventricular tachycardia): The pathophysiology and treatment options for which were discussed with her at great length today. 2 episodes of fleeting paroxysmal SVT on monitor since admission with the longest episode lasting approximately 7 seconds, again patient asymptomatic. No significant structural abnormalities by echocardiogram She states that she like to avoid medications at all cost so, given the fact christine t she is asymptomatic we will hold off on starting beta-blockade at this time. I believe the most prudent course of action would be to discharge her to home and my office will arrange for an outpatient ZIO patch monitor to be worn for 2 weeks. After the results are available she will then follow-up with me as an outpatient, my office to arrange. Okay to discharge at this time. (2) Hypertension: This does appear to be situational and likely exacerbated due to anxiety. Again, the patient wishes to avoid all medications so we will hold off on adding any at this time. I have asked her to keep a daily blood pressure diary at home and then email me through my [employer] in 1 week to let me know the readings and further recommendations are made at that time. (3) Dyslipidemia: Significant with an LDL of 289. Aortic valve sclerosis and mitral valve leaflet thickening present on echocardiogram to suggest that she has developed an atherosclerotic process. Will require statin therapy which was discussed with her at great length at this time. But we will hold off at this time until her above issues are resolved. Again the patient will follow-up with me as an outpatient. History of Present Illness Reason for Consultation: Tachycardia Requesting Physician: Dr. Castillo Attending Physician: Lindy Encarnacion MD History of Present Illness It was my pleasure to see Mrs. Fernandez in consultation today November 09, 2019. She is a very pleasant 64-year-old woman who is not known to our cardiology practice. She presented to [facility] on 11/08/2019 with complaints of an elevated heart rate. She states that she feels absolutely fine however her apple watch notify her that she was tachycardic with a heart rate of 179. Again she did not experience any chest pain, shortness of breath, palpitations, lightheadedness, dizziness or syncope at that time. She then became nervous about this reading and checked her blood pressure and had a systolic of 160. She became concerned and presented to [facility] emergency department. Upon arrival she was hypertensive and given a dose of labetalol and then admitted to telemetry. She continues to remain completely asymptomatic from a cardiac standpoint. She had a similar episode earlier today after her usual 3 mile walk her watch notified her that her heart rate was in the 160s and she stopped her walker early. Again she was completely asymptomatic at that time. Allergies Allergy/AdvReac Type Severity Reaction Status Date / Time Sulfa (Sulfonamide Allergy Mild FACIAL Verified 11/08/19 19:35 Antibiotics) REDNESS AND HIVES gluten AdvReac Intermediate joint pain Verified 11/08/19 19:35 Home Medications Home Medications Medication Instructions Recorded Confirmed Type calcium carb-vit D3-minerals 600 1 tab PO DAILY tab 09/25/18 11/08/19 History mg calcium-400 unit tablet omega-3 360 iy-urc-fuv-fish oil 1 cap PO DAILY 09/25/18 11/08/19 History 1,200 mg capsule,delayed release levothyroxine [Synthroid] 75 mcg PO DAILY 11/08/19 11/08/19 History Patient History Medical History Hypothyroid (Acute) Skin cancer (Acute) Surgical History S/P dilatation and curettage (Acute) Status post Mohs surgery (Acute) surgery 2009 / nose Status post right breast lumpectomy (Acute) surgery 08-21-2018 Family History Mother , age 74 Leukemia, acute Father , age 60 Coronary heart disease Sister No problems noted. Sister No problems noted. Sister No problems noted. Sister No problems noted. Sister No problems noted. Sister No problems noted. Brother Testicular cancer Brother Leukemia Brother No problems noted. Brother No problems noted. 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 No acute distress. HEENT: Normocephalic, atraumatic. Pupils equal, round and reactive to light and accommodation. Extraocular muscles are intact. Anicteric sclera. Moist mucous membranes. Neck: No JVD. No bruit. Cardiovascular: Regular. No S-4. Normal S-1 and S-2. No S-3. No murmurs, rubs or gallops. Pulmonary: Clear to auscultation bilaterally. No rales, rhonchi, or wheezing. Abdomen: Bowel sounds x 4, soft. No rebound, guarding or tenderness. No organomegaly. Extremities: No clubbing, cyanosis or edema. +2 pedal pulses bilaterally. Skin: Warm and dry. Results & Data ([facility]) Vital Signs (Past 12 Hours) Vital Signs Temp Pulse Pulse Resp BP BP Pulse Ox 11/09/19 13:55 36.6 C 64 16 173/89 H 145/79 H 96 11/09/19 11:00 36.6 C 64 16 145/79 H 96 11/09/19 07:15 60 11/09/19 07:00 36.4 C L 57 L 16 143/74 H 97 11/09/19 04:20 36.4 C L 61 20 105/59 L 96 Laboratory Results Laboratory Results - last 24 hr 11/08/19 11/08/19 11/08/19 19:02 19:02 19:02 WBC 6.41 RBC 4.86 Hgb 15.8 Hct 44.3 MCV 91.2 MCH 32.5 MCHC 35.7 RDW Std Deviation 41.7 RDW Coeff of Jimi 12.5 Plt Count 259 MPV 9.9 Immature Gran % (Auto) 0.2 Neut % (Auto) 62.7 Lymph % (Auto) 28.5 [place] % (Auto) 6.2 Eos % (Auto) 1.6 Baso % (Auto) 0.8 Immature Gran # (Auto) 0.01 Neut # (Auto) 4.02 Lymph # (Auto) 1.83 [place] # (Auto) 0.40 Eos # (Auto) 0.10 Baso # (Auto) 0.05 PT 10.7 INR 1.0 APTT 24.8 PTT Ratio 0.9 D-Dimer 290 Sodium 137 Potassium 4.0 Chloride 105 Carbon Dioxide 26 Anion Gap 7.0 BUN 14 Creatinine 0.77 Est Cr Clr Drug Dosing 67.3 Est GFR ( Amer) 93.3 Est GFR (Non-Af Amer) 80.5 BUN/Creatinine Ratio 17.6 Glucose 104 H Calcium 9.2 Magnesium 2.2 Total Bilirubin 0.7 AST 14 L ALT 23 Alkaline Phosphatase 82 Troponin I < 0.015 Total Protein 8.0 Albumin 4.3 Globulin 3.7 Albumin/Globulin Ratio 1.2 Lipase 115 TSH 3.760 11/08/19 11/09/19 11/09/19 21:48 05:59 05:59 WBC 5.53 RBC 4.63 Hgb 14.8 Hct 42.5 MCV 91.8 MCH 32.0 MCHC 34.8 RDW Std Deviation 42.7 RDW Coeff of Jimi 12.7 Plt Count 229 MPV 10.7 H Immature Gran % (Auto) 0.0 Neut % (Auto) 58.7 Lymph % (Auto) 28.2 [place] % (Auto) 9.8 Eos % (Auto) 2.2 Baso % (Auto) 1.1 Immature Gran # (Auto) 0.00 Neut # (Auto) 3.25 Lymph # (Auto) 1.56 [place] # (Auto) 0.54 Eos # (Auto) 0.12 Baso # (Auto) 0.06 PT INR APTT PTT Ratio D-Dimer Sodium 139 Potassium 3.8 Chloride 106 Carbon Dioxide 25 Anion Gap 8.0 BUN 15 Creatinine 0.95 Est Cr Clr Drug Dosing 54.5 Est GFR ( Amer) 72.3 Est GFR (Non-Af Amer) 62.4 BUN/Creatinine Ratio 16.0 Glucose 94 Calcium 9.0 Magnesium Total Bilirubin AST ALT Alkaline Phosphatase Troponin I < 0.015 Total Protein Albumin Globulin Albumin/Globulin Ratio Lipase TSH
--- NOTE | 2019-11-09 17:16 | Discharge Summary ---
Date of Service November 09, 2019 Admission HPI Per Admitting Provider History obtained from patient and records. Medical history significant for hypertension, breast cancer right status post surgery, radiation, hypothyroidism, skin cancer as per records. Patient seen at the ER last October 2016 for high blood pressure and anxiety. SBP 1 60-1 80s. Patient discharged on amlodipine prescription which should help for a short time. Medication eventually discontinued due to dizziness from low blood pressure. Yesterday while exercising patient noted elevated blood pressure SBP 160s. No chest pain, no S OB. No unusual stress or change in exercise regimen. Denies inordinate caffeine intake. Denies NSAID intake. No family concerns about sleep apnea as per patient. Mild achy headache symptoms. She was working in the kitchen today when she noticed the heart rate monitor on her smart watch to be 170s. SBP again noted to be 160s. Cardiac rate sometimes 40s during sleep upon review of her smart watch heart rate monitor. No chest pain, no S OB. Persistent headache symptoms. Patient consulted ER for evaluation. At the ER, SBP noted to be 190-220s. 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 Admission Exam Per Admitting Provider GENERAL: Comfortable, slightly anxious, pleasant, no respiratory distress SKIN: Normal color, warm HEENT: Bespectacled, pink palpebral conjunctivae, no ptosis, dry buccal mucosa NECK : Supple, no tenderness CHEST : CTA, no tenderness HEART : RRR, systolic murmur ABDOMEN: Some distention, nontender EXTREMITIES : No LE swelling/tenderness, no other conspicuous deformities noted NEUROLOGIC : Coherent, no facial asymmetry, no other gross focality Principal Diagnosis Hypertension PSVT (paroxysmal supraventricular tachycardia): Sinus tachycardia Hypothyroidism Discharge Exam General- No acute distress Head- atraumatic Eyes- PERRL, EOMI, ENT- oropharynx clear Neck- supple, no JVD Lungs- clear to auscultation Heart- regular rhythm; no murmur Abdomen- normal bowel sounds, soft, nontender Extremities- no calf tenderness Neuro- alert, oriented x 3; PERRL, EOMI; no facial palsy; no dysarthria Skin- warm & dry Discharge Data Allergies Allergy/AdvReac Type Severity Reaction Status Date / Time Sulfa (Sulfonamide Allergy Mild FACIAL Verified 11/08/19 19:35 Antibiotics) REDNESS AND HIVES gluten AdvReac Intermediate joint pain Verified 11/08/19 19:35 Consultations 11/08/19 21:29 ED Decision to Admit Stat 11/09/19 10:07 Consult Cardiology Routine Ordered Studies 11/08/19 22:09 CT head/brain wo con Urgent XR chest 1V portable CLINICAL HISTORY: 64 years-old Female presenting with Chest Pain. TECHNIQUE: Portable upright AP view of the chest was obtained. COMPARISON: . FINDINGS: Atherosclerosis of the aortic arch. Cardiac silhouette borderline enlarged. No focal opacity. No large effusion or pneumothorax. Osseous structures normal. Upper abdomen normal. IMPRESSION: 1. Borderline cardiomegaly. No other convincing evidence of acute cardiopu lmonary disease. ACT 112: Negative or not required by law. Electronically signed by: Toy Mina M.D. 11/08/2019 7:00 PM Dictated: 11/08/191858 Transcribed: 11/08/191858 CT head/brain wo con CLINICAL HISTORY: 64 years-old Female presenting with fernandez, tachycardia, hypertension. TECHNIQUE: Multidetector CT imaging of the head was performed without the use of intravenous contrast. IV contrast: None. One or more dose lowering techniques were used consistent with the principles of ALARA (as low as reasonably achievable), including automatic exposure control, mA or kV adjustment to individual patient size, and/or use of iterative reconstruction. COMPARISON: None. CT DOSE (mGy.cm): The estimated cumulative dose is 729.78 mGycm. 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 Ventricles and sulci normal in size. No hemorrhage. Periventricular and subcortical white matter hypoattenuation, most focally in the left parietal lobe, nonspecific but possibly indicative of chronic small vessel ischemic change. No acute territorial infarct. No mass effect or midline shift. No extra- axial fluid collection. Paranasal sinuses and mastoid air cells clear. Calvarium intact. IMPRESSION: 1. Suspected chronic small vessel ischemic change, most focally in the left parietal lobe. Posterior reversible encephalopathy syndrome is considered less likely. 2. No hemorrhage or other evidence of acute intracranial pathology. ACT 112: Negative or not required by law. Electronically signed by: Toy Mina M.D. 11/08/2019 10:29 PM Dictated: 11/08/192224 Transcribed: 11/08/192224 Hospital Course (1) Asymptomatic hypertensive urgency: Possible related to anxiety during the hospital admission BP on admission increased to 228/120 Received labetalol 10mg IV in the ER In the past was taking Norvac, that was discontinued due to low BP Received Lisinopril 2.5 mg this morning (Very small dose ) BP 145/79 currently We discussed with cardiology and recommended not to discharge on any meds Clinically stable Sinus tachycardia PSVT (paroxysmal supraventricular tachycardia): HR on admission 128 Possible related to anxiety Telemonitor showed 2 episodes of SVT Received Labetalol 10mg IV in the ER Tele monitor showed HR btw 40 to 120's Asymptomatic Will consult cardiology to eval for Tachy-era syndrome ECHO showed no LV wall motion abnormalities. EF 60-65% Case discussed with cardiology Will hold on any medication for now She will follow up with cardiology outpatient in 2 weeks and will arrange for ZIO patch Ok from cardiology standpoint to discharge home Hypothyroidism TSH WNL Continue Levothyroxine DVT px on Lovenox CODE STATUS FULL CODE Disposition Will discharge home today Total Time Total Time Spent Total Time Spent (In Minutes): 35 minutes Total Time Includes: Examination of the Patient, Discharge Planning, Medication Reconciliation, Communication With Other Providers and Other Discharge Plan Discharge Items Patient Disposition: Home - Self-Care Reason For Visit: HTN CRISIS Discharge Diagnosis: Hypertension Sinus tachycardia Hypothyroidism Activity: Resume your previous activity Non-emergency contact: Primary Care Provider and Classroom Assistant Call non-emergency contact if: you have any medication questions Follow-up/Referrals: Toy Dove MD [Primary Care Provider] - Diet: Heart Healthy Addtl Attending Provider Instructions: Follow up with your primary care provider Dr. Dove in 1 week ( Office will call you for the appointment) Follow up with cardiology Dr. Walsh ( Office will call you for the appointment) Continue monitor your blood pressure and bring your blood pressure log at your next appointment with your physician Follow up a low salt diet Pending Studies at Discharge: No Stand-Alone Forms: My [employer], Smoking Cessation Medications and DC Order Prescriptions: Continued calcium carbonate-vit D3-min 600 mg calcium- 400 unit tablet 1 tab PO DAILY RF: 0 omega 9-[id number] oil [Fish Oil] 360-1,200 mg capsule,delayed release(DR/EC) 1 cap PO DAILY RF: 0 levothyroxine [Synthroid] 75 mcg tablet 75 mcg PO DAILY RF: 0 Discharge Orders: Discharge Order (Routine); Ordered 11/09/19 Ordered By: Lindy Vigil/Other Patient Handouts: Low-Salt Choices, High Blood Pressure Risk Factors Admission Data Admit Date/Time: 11/08/19 22:46 Attending Provider: Lindy Encarnacion Admit Provider: Mainor Diaz Primary Care Provider: Toy Dove Other Providers: Mainor Diaz ; Gordon Walsh Other Interventions: Discharge Summary Assessment (RN) Last Done: 11/09/19 13:55 DC Date/Time DO NOT enter until pt leaves facility: 11/09/19 14:13
--- NOTE | 2019-11-09 22:52 | Electrocardiogram Report ---
Test Reason : Blood Pressure : / mmHG Vent. Rate : 105 BPM Atrial Rate : 105 BPM P-R Int : 180 ms QRS Dur : 080 ms QT Int : 340 ms P-R-T Axes : 068 080 055 degrees QTc Int : 449 ms Sinus tachycardia Nonspecific ST abnormality Abnormal ECG When compared with ECG of 03-NOV-2016 11:30, No significant change was found Confirmed by Kevin Plaza ([id number]) on 11/09/2019 10:52:15 PM Referred By: REFERRED SELF Confirmed By:Kevin Plaza
--- NOTE | 2019-11-09 22:53 | Electrocardiogram Report ---
Test Reason : Blood Pressure : / mmHG Vent. Rate : 075 BPM Atrial Rate : 075 BPM P-R Int : 142 ms QRS Dur : 078 ms QT Int : 366 ms P-R-T Axes : 047 081 013 degrees QTc Int : 408 ms Normal sinus rhythm with sinus arrhythmia Nonspecific ST and T wave abnormality Abnormal ECG When compared with ECG of 08-NOV-2019 18:30, No significant change was found Confirmed by Kevin Plaza ([id number]) on 11/09/2019 10:52:54 PM Referred By: REFERRED SELF Confirmed By:Kevin Plaza
== END 2019-11-09 14:13 | disposition home or self-care (01) | DRG 305 ==
LOC: ED 18:19 → 2S 22:46